=== PATIENT | female | born 1985 | race Hispanic/Latino ===

== ENCOUNTER 2018-08-04 14:52 | Emergency (ER) | payer OTHER ==
[2018-08-04 15:38] LABS: BASOPHILS % (AUTO) 0.5 % (0.0-5.0); EOSINOPHILS % (AUTO) 3.3 % (0.0-8.0); HEMATOCRIT 39.1 % (36-48); MEAN CORPUSCULAR HEMOGLOBIN 29.6 pg (27.0-33.0); MEAN CORPUSCULAR HGB CONC 33.8 g/dL (32.0-36.0); MEAN CORPUSCULAR VOLUME 87.8 fL (79-99); MONOCYTES % (AUTO) 8.6 % (3.0-13.0); NEUTROPHILS % (AUTO) 70.6 % (40.0-77.0); NUCLEATED RED BLOOD CELLS 0.1 % (0.0-0.19); PLATELET COUNT (AUTO) 233 K/uL (130-400); RED BLOOD CELL COUNT(AUTO) 4.46 MIL/uL (4.00-5.50); RED CELL DISTRIBUTION WIDTH 13.8 % (11.0-15.5); WHITE BLOOD COUNT (AUTO) 11.1 K/uL (4.8-10.8)
[2018-08-04 15:50] LABS: CREATININE 0.8 mg/dL (0.5-1.5); POTASSIUM 4.2 mmol/L (3.5-5.1)
[2018-08-04] MEDS ORDERED: SULFAMETHOX-TMP DS 800/160 TAB ONE (16:09)
== END 2018-08-04 16:27 | disposition home or self-care (01) ==
LOC: EDH 14:52
DX: L03.211 Cellulitis of face (principal); I10 Essential (primary) hypertension; Z88.0 Allergy status to penicillin
CPT/HCPCS: 36415; 80048; 85025

== ENCOUNTER 2018-08-06 20:57 | Emergency (ER) | payer OTHER ==
[2018-08-06] MEDS ORDERED: LIDOCAINE HCL-MPF 1% 2ML VIAL ONE (21:34)
[2018-08-06] MEDS ORDERED: CEFTRIAXONE SODIUM 1 GM ONE (21:35)
== END 2018-08-06 22:04 | disposition home or self-care (01) ==
LOC: EDH 20:57
DX: L03.211 Cellulitis of face (principal); I10 Essential (primary) hypertension; Z88.0 Allergy status to penicillin; Z79.899 Other long term (current) drug therapy
CPT/HCPCS: 99283; J0696; J3490; 96372

== ENCOUNTER 2018-11-04 01:40 | Emergency (ER) | payer OTHER ==
[2018-11-04] MEDS ORDERED: SODIUM CHLORIDE 0.9% 1000ML 1,000 ML IV ONE (02:37)
[2018-11-04 03:00] LABS: BASOPHILS % (AUTO) 0.4 % (0.0-5.0); EOSINOPHILS % (AUTO) 2.9 % (0.0-8.0); HEMATOCRIT 43.5 % (36-48); LYMPHOCYTES % (AUTO) 23.8 % (21.0-51.0); MEAN CORPUSCULAR HEMOGLOBIN 28.4 pg (27.0-33.0); MEAN CORPUSCULAR HGB CONC 32.4 g/dL (32.0-36.0); MEAN CORPUSCULAR VOLUME 87.5 fL (79-99); MONOCYTES % (AUTO) 9.5 % (3.0-13.0); NEUTROPHILS % (AUTO) 63.4 % (40.0-77.0); NUCLEATED RED BLOOD CELLS 0.1 % (0.0-0.19); PLATELET COUNT (AUTO) 287 K/uL (130-400); RED BLOOD CELL COUNT(AUTO) 4.97 MIL/uL (4.00-5.50); RED CELL DISTRIBUTION WIDTH 13.4 % (11.0-15.5); WHITE BLOOD COUNT (AUTO) 14.9 K/uL (4.8-10.8)
[2018-11-04 03:07] LABS: CREATININE 0.8 mg/dL (0.5-1.5); POTASSIUM 4.8 mmol/L (3.5-5.1)
[2018-11-04 03:12] LABS: ALBUMIN 3.4 g/dL (3.5-5.0); BILIRUBIN,TOTAL 0.5 mg/dL (0.2-1.0); TOTAL PROTEIN, SERUM 7.7 g/dL (6.0-8.3)
[2018-11-04 04:01] LABS: BILIRUBIN,URINE Negative (NEGATIVE); COLOR,URINE Yellow (YELLOW); GLUCOSE, URINE (UA) Negative (NEGATIVE); KETONES,URINE Negative (NEGATIVE); LEUKOCYTE ESTERASE ,URINE Small (NEGATIVE); NITRATE,URINE Negative (NEGATIVE); OCCULT BLOOD,URINE Negative (NEGATIVE); PROTEIN,URINE Negative (NEGATIVE)
[2018-11-04 04:04] LABS: APPEARANCE,URINE CLOUDY (CLEAR); HCG,QUAL RESULT NEGATIVE (NEGATIVE)
[2018-11-04 04:23] LABS: RBC,URINE None Seen /HPF (0-1)
[2018-11-04 04:24] LABS: AMORPHOUS SEDIMENT,UR Few /LPF (None Seen); BACTERIA,URINE None Seen /HPF (None Seen); SQUAMOUS EPITHELIAL CELL,UR Moderate /HPF (0-2)
== END 2018-11-04 06:52 | disposition home or self-care (01) ==
LOC: EDH 01:40
DX: N39.0 Urinary tract infection, site not specified (principal); N83.209 Unspecified ovarian cyst, unspecified side; I10 Essential (primary) hypertension; Z88.0 Allergy status to penicillin
CPT/HCPCS: 36415; 74176; 80053; 81001; 81025; 85025; 99285; J7030

== ENCOUNTER 2019-03-24 20:51 | Emergency (ER) | payer OTHER ==
[2019-03-24 22:15] LABS: BASOPHILS % (AUTO) 0.4 % (0.0-5.0); EOSINOPHILS % (AUTO) 4.1 % (0.0-8.0); HEMATOCRIT 40.4 % (36-48); LYMPHOCYTES % (AUTO) 16.4 % (21.0-51.0); MEAN CORPUSCULAR HEMOGLOBIN 29.2 pg (27.0-33.0); MEAN CORPUSCULAR HGB CONC 32.7 g/dL (32.0-36.0); MEAN CORPUSCULAR VOLUME 89.4 fL (79-99); MONOCYTES % (AUTO) 6.4 % (3.0-13.0); NEUTROPHILS % (AUTO) 72.3 % (40.0-77.0); PLATELET COUNT (AUTO) 296 K/uL (130-400); RED BLOOD CELL COUNT(AUTO) 4.52 MIL/uL (4.00-5.50); WHITE BLOOD COUNT (AUTO) 12.8 K/uL (4.8-10.8)
[2019-03-24 22:25] LABS: CREATININE 0.9 mg/dL (0.5-1.5); POTASSIUM 4.2 mmol/L (3.5-5.1)
[2019-03-24 22:27] LABS: RAPID GROUP A STREP NEGATIVE (NEGATIVE)
[2019-03-24 22:30] LABS: ALBUMIN 3.3 g/dL (3.5-5.0); BILIRUBIN,TOTAL 0.4 mg/dL (0.2-1.0); TOTAL PROTEIN, SERUM 7.6 g/dL (6.0-8.3)
== END 2019-03-24 23:09 | disposition home or self-care (01) ==
LOC: EDH 20:51
DX: J20.9 Acute bronchitis, unspecified (principal); Z88.0 Allergy status to penicillin; G62.9 Polyneuropathy, unspecified
CPT/HCPCS: 36415; 71045; 80053; 81025; 85025; 87804; 87880

== ENCOUNTER 2020-11-04 18:06 | Emergency (ER) | payer OTHER ==
[~2020-11-04] VITALS: Ht 162.6 cm; Wt 104.3 kg
[2020-11-04 18:07] VITALS: BP 144/99
[2020-11-04] MEDS ORDERED: MORPHINE 4 MG SYG IVP ONE (19:00)
[2020-11-04] MEDS ORDERED: ONDANSETRON 4MG INJ IVP ONE (19:00)
[2020-11-04] MEDS ORDERED: ACETAMINOPHEN 325 MG TAB PO ONE (19:00)
[2020-11-04] MEDS ORDERED: 0.9%NACL 1000ML 1,000 ML IV ONE (19:00)
[2020-11-04] MEDS ORDERED: ASPIRIN 325MG TAB PO ONE (19:00)
[2020-11-04 19:19] LABS: BASOPHILS % (AUTO) 0.4 % (0.0-5.0); EOSINOPHILS % (AUTO) 3.4 % (0.0-8.0); HEMATOCRIT 37.7 % (36-48); LYMPHOCYTES % (AUTO) 16.6 % (21.0-51.0); MEAN CORPUSCULAR HEMOGLOBIN 27.5 pg (27.0-33.0); MEAN CORPUSCULAR HGB CONC 31.8 g/dL (32.0-36.0); MEAN CORPUSCULAR VOLUME 86.5 fL (79-99); MONOCYTES % (AUTO) 8.1 % (3.0-13.0); NEUTROPHILS % (AUTO) 71.1 % (40.0-77.0); PLATELET COUNT (AUTO) 284 K/uL (130-400); RED BLOOD CELL COUNT(AUTO) 4.36 MIL/uL (4.00-5.50); RED CELL DISTRIBUTION WIDTH 13.3 % (11.0-15.5); WHITE BLOOD COUNT (AUTO) 11.7 K/uL (4.8-10.8)
[2020-11-04 19:27] LABS: CREATININE 0.8 mg/dL (0.5-1.5); POTASSIUM 4.2 mmol/L (3.5-5.1)
[2020-11-04 19:32] LABS: ALBUMIN 3.3 g/dL (3.5-5.0); BILIRUBIN,TOTAL 0.3 mg/dL (0.2-1.0)
[2020-11-04 19:35] LABS: INR 0.94 (0.85-1.15); PROTHROMBIN TIME 10.3 SEC (9.6-11.6)
[2020-11-04 19:36] LABS: PARTIAL THROMBOPLASTIN TIME 29.1 SEC (26.3-35.5)
[2020-11-04 19:37] LABS: MAGNESIUM 1.9 mg/dL (1.80-2.40)
[2020-11-04 19:45] LABS: B-TYPE NATRIURETIC PEPTIDE 24 pg/mL (0-100)
[2020-11-04 20:05] VITALS: BP 129/65
[2020-11-04 20:14] LABS: APPEARANCE,URINE Cloudy (CLEAR); BILIRUBIN,URINE Negative (NEGATIVE); COLOR,URINE Yellow (YELLOW); GLUCOSE, URINE (UA) Negative (NEGATIVE); KETONES,URINE Trace mg/dL (NEGATIVE); LEUKOCYTE ESTERASE ,URINE Negative (NEGATIVE); NITRATE,URINE Negative (NEGATIVE); OCCULT BLOOD,URINE Trace (NEGATIVE); PROTEIN,URINE Negative (NEGATIVE)
[2020-11-04 20:17] LABS: HCG,QUAL RESULT NEGATIVE (NEGATIVE)
[2020-11-04 20:23] LABS: AMPHET/METH SCREEN,URINE NEGATIVE (NEGATIVE); BARBITURATE SCREEN, URINE NEGATIVE (NEGATIVE); BENZODIAZEPINES SCREEN,URINE NEGATIVE (NEGATIVE); CANNABINOID SCREEN,URINE POSITIVE (NEGATIVE); COCAINE SCREEN,URINE NEGATIVE (NEGATIVE); OPIATE SCREEN,URINE NEGATIVE (NEGATIVE); PHENCYCLIDINE SCREEN,URINE NEGATIVE (NEGATIVE)
[2020-11-04] MEDS ORDERED: ASPIRIN 325MG TAB ONE (20:25)
[2020-11-04] MEDS ORDERED: ONDANSETRON 4MG INJ ONE (20:25)
[2020-11-04] MEDS ORDERED: ACETAMINOPHEN 325 MG TAB ONE (20:25)
[2020-11-04] MEDS ORDERED: MORPHINE 4 MG SYG ONE (20:25)
[2020-11-04 20:31] LABS: BACTERIA,URINE Few /HPF (None Seen); MUCUS,URINE Few LPF (None Seen); SQUAMOUS EPITHELIAL CELL,UR Few /HPF (0-2)
[2020-11-04] MEDS ORDERED: IOHEXOL 350 MG/ML 100ML INFUS..BTL IV ONE (21:00)
[2020-11-04 22:39] VITALS: BP 126/74
[2020-11-05] MEDS ORDERED: ALBU8.5H8 IH (00:31)
[2020-11-05] MEDS ORDERED: HYDR-3421 PO (00:31)
[2020-11-05] MEDS ORDERED: ACET-3194 PO (00:31)
[2020-11-05] MEDS ORDERED: LORAZEPAM 2 MG/ML 1 ML VIAL ONE (00:55)
[2020-11-05 00:58] VITALS: BP 133/70
[2020-11-05] MEDS ORDERED: LORAZEPAM 2 MG/ML 1 ML VIAL IVP ONE (01:00)
== END 2020-11-05 01:08 | disposition home or self-care (01) ==
LOC: EDH 18:06
DX: R07.89 Other chest pain (principal); R06.02 Shortness of breath; F41.9 Anxiety disorder, unspecified; R11.2 Nausea with vomiting, unspecified; I10 Essential (primary) hypertension; Z79.82 Long term (current) use of aspirin; Z79.899 Other long term (current) drug therapy; Z88.0 Allergy status to penicillin
CPT/HCPCS: 36415; 71045; 71275; 80053; 80305; 81001; 81025; 82550; 83690; 83735; 83880; 84484 ×2; 85025; 85378; 85610; 85730; 93005; 96361; 96374; 96375 ×2; 99285; J2060; J2270; J2405; Q9967